=== PATIENT | female | born 1965 | race Caucasian/White ===

== ENCOUNTER 2016-10-25 05:19 | Day surgery (SDC) | payer BC ==
--- NOTE | ~2016-10-25 | OP ---
Record Of Operation [facility] [address] [place]. [address] NAME: CELIA REYNOLDS : 63 STATUS : [facility]#: [id number] AGE: 51 ADM/REG DATE : 10/25/16 MR#: [id number] REPORT SERV DATE: 10/28/16 DICTATED BY: MONTSERRAT SPENCE DATE: 10/28/16 REPORT STATUS : Draft TRANSCRIBED BY: MODJenny DATE: 10/28/16 DATE OF PROCEDURE: 10/25/2016 TITLE OF OPERATION: Cystourethroscopy, right retrograde pyelogram, right ureteroscopy with laser lithotripsy, and placement of 6 x 24 right ureteral stent without a tether. PREOPERATIVE DIAGNOSIS: Right ureteral stone. POSTOPERATIVE DIAGNOSIS: Right ureteral stone. INDICATIONS: Ms. Reynolds is a 51-year-old female with a long-standing right ureteral stone. She is symptomatic with a right flank pain and vaginal burning. She is here for therapy. ANESTHESIA: General. COMPLICATIONS: None. IMPLANT: 6 x 24 right ureteral stent. SPECIMEN: Stones for analysis. NARRATIVE: The patient was brought to the operating room and identified by a wristband. General anesthesia was induced and Levaquin was given for preoperative antibiotics. She was placed in a dorsal lithotomy position, prepped and draped in sterile fashion. A cystoscope was placed into her urethra and into her bladder. The bladder was inspected. There was no tumors or abnormalities. The right ureteral orifice was identified and cannulated with a Sensor wire. A 5-German open-ended catheter was placed over the wire to the distal ureter. A retrograde pyelogram was shot, which showed obstruction of the distal ureter. The wire passed the stone. A rigid ureteroscope was placed alongside the wire into the distal ureter. The stone was causing significant ureteral edema. However, passed the edematous area and identified the stone. Using 200 micron holmium laser fiber, the stone was fragmented into numerous small pieces. They were removed in 1.9 nitinol basket. The stones were sent to pathology for analysis. Given the edematous appearance of the ureter, I decided to leave the stents for a week. A 6 x 24 [place] ureteral stent was placed in standard fashion. The proximal coil was coiled in the renal pelvis. Distal coil was in the bladder under direct vision. The bladder was drained. The patient was awoken from anesthesia and transferred to the recovery room. I will see her week from Saturday for cystoscopy and stent removal in clinic. MARICRUZ/MARCO Montserrat Spence MD Record Of [address] [address] NAME: CELIA REYNOLDS : 63 STATUS : [facility] PAT#: [id number] AGE: 51 ADM/REG DATE : 10/25/16 MR#: [id number] REPORT SERV DATE: 10/28/16 DICTATED BY: MONTSERRAT SPENCE DATE: 10/28/16 REPORT STATUS : Draft TRANSCRIBED BY: MARCO DATE: 10/28/16 / [id number] CC: MD GRETTA Carrasco JENNY BRADSHAW
[~2016-10-25 05:19] MED LIST: *DENIES; MOTRIN
[2016-10-31 11:22] LABS: STONE COMPOSITION TWO DNR (())
[2017-02-11] MEDS ORDERED: FLEXI JOIN1 PO (16:39)
[2017-02-11] MEDS ORDERED: MULTIVIT/MIN PO (16:39)
[2017-02-11] MEDS ORDERED: [UNRECOGNIZED DRUG - OTHER] PO (16:40)
== END 2016-10-25 15:59 | disposition home or self-care (01) ==
LOC: SDC 05:19
PROVIDERS: Urology
PROC: 0TF68ZZ Fragmentation in Right Ureter, Via Natural or Artificial Opening Endoscopic (ICD-10-PCS; principal; 2016-10-25 06:45)
PROC: 0T768DZ Dilation of Right Ureter with Intraluminal Device, Via Natural or Artificial Opening Endoscopic (ICD-10-PCS; 2016-10-25 06:45)
DX: N20.1 Calculus of ureter (principal); N13.5 Crossing vessel and stricture of ureter without hydronephrosis; E66.01 Morbid (severe) obesity due to excess calories; Z68.41 Body mass index [BMI] 40.0-44.9, adult; Z87.442 Personal history of urinary calculi; Z86.010 Personal history of colon polyps; Z90.49 Acquired absence of other specified parts of digestive tract
CPT/HCPCS: 74420; 81001; 82365; 84703; 85014; 85018; 93005; C1758; C2617; J2250; J2270; J2405; J2550; J2710; J3010; Q9967